=== PATIENT | male | born 1960 | race Caucasian/White ===

== ENCOUNTER 2024-04-11 15:12 | Inpatient (IN) | payer OTHER, SELFPAY ==
[2024-04-11] VITALS (39 sets, daily range): BP systolic 73–148; BP diastolic 53–131; BMI 32.9
[2024-04-11 11:47] LABS: % Basophils 0.7 % (0-2); % Eosinophils 2.7 % (0-6); % Immature Granulocytes 0.3 % (0-0.5); % Monocytes 7.4 % (1.7-9.3); % Neutrophils 58.9 % (42.2-75.2); Absolute Basophils 0.1 10^3/uL (0-0.2); Absolute Eosinophils 0.2 10^3/uL (0-0.7); Absolute Lymphocytes 2.2 10^3/uL (1.2-3.4); Absolute Monocytes 0.5 10^3/uL (0.1-0.6); Absolute Neutrophils 4.3 10^3/uL (1.4-6.5); Hematocrit 48.1 % (39.0-52.0); Mean Corp Hgb Conc. 33.3 g/dL (33.0-37.0); Mean Corpuscular Volume 96.2 fL (80.0-94.0); Mean Platelet Volume 10.9 fL (7.4-10.4); Nucleated Red Blood Cells % 0 % (-); Platelet Count 173 10^3/uL (130-400); Red Cell Dist. Width 12.9 % (11.5-14.5); White Blood Cell Count 7.3 10^3/uL (4.8-10.8)
[2024-04-11] MEDS: LOW STRENGTH ASPIRIN 243 MG PO (11:48)
[2024-04-11] MEDS: NITROSTAT (SUBLINGUAL) 0.4 MG SL ×4 (11:48→12:37)
[2024-04-11] MEDS: NSS 1000 IV (11:51)
--- NOTE | 2024-04-11 11:55 | ED.GENMED ---
History of Present Illness
General
Chief Complaint: Chest Pain
Source: patient and spouse
Exam Limitations: none
Time Seen by Provider: 04/11/24 11:42
Nursing documentation reviewed up to this point in time: agreed with
History of Present Illness
History of Present Illness:
Patient with history of coronary artery disease, SD in 2013 with stent placement, presents to ED secondary to sudden onset of chest pain while watching TV, on approxi-1 hour prior to arrival. Chest pain described as pressure and throbbing,
radiation to both arms, associated with nausea and diaphoresis. Denies shortness of breath. Denies dizziness. Denies vomiting. Denies back pain. Denies leg pain or swelling. No recent travel or surgery. Patient states that his symptoms are
similar to what he experienced 10 years ago. 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
Past History
Past History
ED Past Medical History: None
ED Past Surgical History: Orthopedic
Social History
Tobacco: Non-smoker
Alcohol: Occasional
Drug: None
Personal:
Living: with family
Review of Systems
Review of Systems
Allergies reviewed?: Yes
All Other Systems: ROS reviewed and negative except as documented in HPI and ROS
Constitutional: Reports no symptoms
Respiratory: Reports no symptoms
Cardiac: Reports chest pain and diaphoresis
ABD/GI: Reports nausea
: Reports no symptoms
Skin: Reports no symptoms
Neurological: Reports no symptoms
Phy Exam
Physical Exam
Physical Exam:
Physical Exam
General: mild distress, not acutely ill. afebrile
Head: nc/at. eomi
Neck: supple. normal range of motion. no jvd.
Heart: s1/s2 regular rate and rhythm, no murmur. equal radial pulses.
Lungs: no acute respiratory distress. clear bilaterally
Abdomen: normal bowel sounds. not tender.
Neuro: alert and oriented. no focal neurological deficits
Skin: no rash
Psychiatric: well kept. interactive and cooperative
Extremities: no edema. no calf tenderness.
Scores
Heart Score for Chest Pain Patients
STEMI patient?: No
History: Moderately Suspicious
ECG: Significant ST-Depression
Age: >45 - <65 years
Risk Factors: >/= 3 Risk Factors or History of CAD
Troponin: </= Normal Limit
Heart Score for Chest Pain Patients: 6
Heart Score Risk: 20.3% MACE over next 6 weeks
Course
Orders/Labs/Results
Orders:
Orders
04/11/24
Electrocardiogram (*1) Stat
Reason for Study: Chest Pain
Comment: DONE
Electrocardiogram (*1) Stat
Reason for Study: Chest Pain
Comment: DONE
04/11/24 11:22
Electrocardiogram (*1) Urgent
Reason for Study: Chest Pain
Cardiac Monitoring- Treatment ONCE
EKG- Treatment ONCE
IV Insert/Care/Rem.- Treatment PRN
O2 Therapy [RESP] Urgent
Titrate/Wean O2 to maintain O2 sat greater than (%): 90
Special Instructions: Maintain sats >/=90%
Pulse Ox/spot Check [RESP] Urgent
Quantity: 1
Special Instructions: ON ROOM AIR
04/11/24 11:38
Complete Blood Count/With Diff Urgent
Comprehensive Metabolic Panel Urgent
NT-proBNP Urgent
Comment: ADD
Troponin I Urgent
04/11/24 11:46
Aspirin Chewable [Low Strength Aspirin] 243 mg .ROUTE .STK-MED ONE
04/11/24 11:47
Aspirin Chewable [Low Strength Aspirin] 243 mg PO NOW STA
Nitroglycerin Sublingual [Nitrostat (Sublingual)] 0.4 mg .ROUTE .STK-MED ONE
04/11/24 11:50
0.9% Sodium Chloride 1000 ml [Nss] 1,000 ml IV BOLUS
04/11/24 11:51
Nitroglycerin Sublingual [Nitrostat (Sublingual)] 0.4 mg SL [id number] PRN
04/11/24 11:59
CR Chest Portable - 1 View Urgent
Comment:
Reason For Exam: chest pain
Reason Study Needs to be Portable: Patient Unstable
04/11/24 12:09
Heparin 4,000 units IV NOW STA
Nursing to Place Non Medication Order As Directed
Physician Order: PTT 6 hours after initial start of Heparin infusion
Above order entered?: Yes
04/11/24 12:15
Heparin 42067 Units/250 ml 25,000 units in 250 ml IV PER PROTOCOL
Weight to be used for heparin protocol in kilograms (kg):: 101
Protocol:: Cardiac Tx/Acute Coronary
PTT Goal Range to be used:: PTT 73 to 111 seconds
Order type:: Initial
INITIAL Infusion Dose (UNITS/KG/hr) & then follow protocol:: 12 units/kg/hr
Infusion Dose in UNITS/hr & then follow protocol (UNITS/hr):: 1,000
INFUSION RATE in mL/hr & then follow protocol (mL/hr):: 10
PTT less than or equal to 64 seconds:: Increase rate by 200 units/hr (+ 2 mL/hr)
PTT 64.1 to 72.9 seconds:: Increase rate by 100 units/hr (+ 1 mL/hr)
PTT 73 to 111 seconds:: Target Range. No change in rate.
PTT 111.1 to 130.9 seconds:: Decrease rate by 100 units/hr (- 1 mL/hr)
PTT 131 to 199.9 seconds:: HOLD for 1 hr. Then decrease rate by 200 units/hr (- 2 mL/hr)
PTT greater than or equal to 200 seconds:: HOLD for 2 hrs & Notify Provider. Then decrease by 200 units/hr (-
2 mL/hr)
Lab follow-up:: Each change, PTT q6h until 2 consecutive are therapeutic. Then PTT
daily.
Nitroglycerin 100 mg/250 ml [Nitroglycerin Premix] 100 mg in 250 ml IV PER PROTOCOL
Initial dose in mcg/min, then titrate:: 25
Titrate to keep:: Chest Pain Free
Titrate by mcg/min:: 5 mcg/min, may increase by 10 mcg/min if dose > 20 mcg/min
Frequency of titrations (minutes):: every 3-5 minutes
Maximum dose in mcg/min:: 200
Begin to taper infusion when:: Remained at goal for 2hrs
Taper by mcg/min:: 5 mcg/min
Frequency of taper (minutes) if patient maintains goal:: 30
Taper to off?: Yes
If infusion off & no longer maintaining goal:: Contact Provider
04/11/24 12:18
PTT Urgent
Comment: Obtain baseline before beginning heparin infusion if not already collected
04/11/24 12:24
Add On- LAB Urgent
Tests Added?: ProBNP
04/11/24 12:51
Nitroglycerin 100 mg/250 ml [Nitroglycerin Premix] 100 mg in 250 ml .ROUTE .STK-MED
04/11/24 12:55
Fentanyl Citrate/Pf [Sublimaze] 100 mcg .ROUTE .STK-MED ONE
Midazolam HCl [Versed] 2 mg .ROUTE .STK-MED ONE
Verapamil Injectable [Isoptin/Verapamil Injection] 5 mg .ROUTE .STK-MED ONE
04/11/24 12:56
Heparin 1000 Units/500 ml [Heparin] 1,000 units in 500 ml .ROUTE .STK-MED
Heparin Sodium,Porcine/Ns/Pf [Heparin 2000 Units/1000 ml] 2,000 unit in 1,000 ml .ROUTE .STK-MED
Nitroglycerin [Tridil] 1,500 mcg .ROUTE .STK-MED ONE
04/11/24 13:09
Lidocaine HCl/Pf [Xylocaine-Mpf 1% Vial] 50 mg .ROUTE .STK-MED ONE
04/11/24 13:32
EPTIFIBATIDE 75 mg/100 mL [Integrilin] 75,000 mcg in 100 ml .ROUTE .STK-MED
Eptifibatide [Integrilin] 20 ml .ROUTE .STK-MED
04/11/24 13:40
NORepinephrine 4 MG/250 ML [Levophed] 4 mg in 250 ml .ROUTE .STK-MED
04/11/24 13:46
Ticagrelor [Brilinta] 180 mg .ROUTE .STK-MED ONE
04/11/24 13:55
Admit Patient As Directed
Co-Sign Provider:
Level of Care: Inpatient admission
Assign to:: IVU
Physician / Group: DCA
Diagnosis: NSTEMI, HFrEF
Patient Condition: Serious
Reason for Hospitalization: NSTEMI, HFrEF
Expected length of stay greater than two midnights?: Yes
ELOS- Estimated Length of Stay in days: 4
I certify the patient meets the requirements for IP care: Yes
Code Status As Directed
Resuscitation Status: Full Code
PRN Pain Medication Management As Directed
May give lesser potent ordered pain med per pt: Yes
preference::
Protocol:: Medication orders for pain may be administered in a
manner that supports deferring to patient preference
when the pt is:
- Requesting an ordered lesser potent pain medication.
Least to most potent pain medications are defined
as: acetaminophen < NSAID < tramadol < opioids
(morphine, oxycodone, hydromorphone).
- Requesting a lesser dose of the same medication IF
ORDERED.
- Requesting a less intrusive route of administration
if both routes are prescribed by the provider (PO <
IV).
04/11/24 13:56
Activity As Directed
Activity Level: As Tolerated
04/11/24 13:57
Echo 2D MMode Color/Doppler Urgent
Reason for Study: NSTEMI, HFrEF
Intake/ Output As Directed
Frequency: Per unit guidelines
Weight As Directed
Frequency: Daily
04/11/24 14:00
Electrocardiogram (*1) DAILY
Reason for Study: Chest Pain
04/11/24 14:05
Nitroglycerin [Tridil] 1,500 mcg .ROUTE .STK-MED ONE
04/11/24 Dinner
Cholesterol Lowering
At Your Request: Full Participation
Cholesterol Lowering: Sodium, 2 Gram
04/11/24 15:11
Electrocardiogram (*1) Urgent
Reason for Study: Other
Other Reason for Exam: s/p intervention
CARDIAC REHAB CONSULT Routine
Co-Sign Provider:
Type of Cardiac Rehab Referral: Outpatient
Diagnosis: STEMI
Date of Diagnosis/Surgery: 04/11/2024
Referring Provider: Daniel Raymundo
Acetaminophen [Tylenol] 650 mg PO Q4HPRN PRN
Fentanyl Citrate/Pf [Sublimaze] 25 mcg IV [id number] PRN
Midazolam HCl [Versed] 1 mg IV Q5MPRN PRN
Morphine Sulfate 2 mg IV Q1HPRN PRN
Nitroglycerin Sublingual [Nitrostat (Sublingual)] 0.4 mg SL [id number] PRN
Oxycodone/Acetaminophen [Percocet 5/325] 1 tablet PO Q4HPRN PRN
Activity As Directed
Activity Level: Out of Bed- Chair
Comment: bed/chair rest for 2 hours then out of bed ad dorothy
[employer] Procedure As Directed
Cardiac Cath Procedure: percutaneous coronary intervention
Intake/ Output As Directed
Frequency: Per unit guidelines
Notify MD As Directed
Notify physician if: immediately for chest pain or bleeding from access site(s)
Radial Artery Hemostasis Method As Directed
Instructions:: 3 mL out at 2 hour posts placement of band
3 mL out at 2 1/2 hours post placement of band
3 mL out at 3 hours post placement of band
Off at 3 1/2 hours post placement of band
If any oozing or hemotoma occurs:: re-inflate band and call provider
Site Checks As Directed
Check access site for bleeding/hematoma: Yes
Comment: on arrival, Q15min x4, Q30min x2, Q1 hr x2, Q2 hr x2, Q4 hr or per
protocol
Vascular Checks As Directed
Location: distal to access site - pulse check
Frequency: Other
Comment: on arrival, Q15min x4, Q30min x2, Q1 hr x2, Q2 hr x2, Q4 hr or per protocol
Vital Signs As Directed
Frequency: Other
Additional Instructions:: on arrival, Q15min x4, Q30min x2, Q1 hr x2, Q2 hr x2, then Q4 hr or per unit
protocol
04/11/24 15:15
0.9% Sodium Chloride 1000 ml [Nss] 1,000 ml IV PER PROTOCOL
Infusion rate in mL/kg/hr:: 1.5
Infusion rate in mL/hr:: 152
Duration of infusion (hours):: 5
EPTIFIBATIDE 75 mg/100 mL [Integrilin] 75,000 mcg in 100 ml IV ORDERED RATE
04/11/24 16:29
Troponin I Q6H
04/11/24 18:00
Rosuvastatin Calcium [Crestor] 20 mg PO QPM
04/11/24 20:00
Ticagrelor [Brilinta] 90 mg PO BID
04/11/24 21:02
Troponin I Q6H
04/12/24 03:18
Basic Metabolic Panel IN AM
Complete Blood Count/No Diff IN AM
Magnesium IN AM
Troponin I IN AM
Troponin I Q6H
04/12/24 06:00
Electrocardiogram (*1) IN AM
Reason for Study: Other
Other Reason for Exam: s/p intervention
04/12/24 08:00
Aspirin Chewable [Low Strength Aspirin] 81 mg PO DAILY
Metoprolol Xl [Toprol Xl] 12.5 mg PO DAILY
04/12/24 14:00
Electrocardiogram (*1) DAILY
Reason for Study: Chest Pain
04/13/24 14:00
Electrocardiogram (*1) DAILY
Reason for Study: Chest Pain
Abnormal Lab Results
04/11/24 04/11/24 04/11/24
11:38 13:31 13:55
MCV 96.2 H fL
(80.0-94.0)
MCH 32.0 H pg
(27.0-31.0)
MPV 10.9 H fL
(7.4-10.4)
Glucose 140 H mg/dl
(70-99)
Albumin 5.3 H g/dl
(3.5-5.0)
POC ACT Low Range 361 H Seconds 388 H Seconds
(116-155) (116-155)
04/11/24
14:43
MCV
MCH
MPV
Glucose
Albumin
POC ACT Low Range 239 H Seconds
(116-155)
04/11/24 11:38
04/11/24 11:38
Vital Signs
Initial and Last Documented VS:
Initial Vital Signs
Temp Pulse Resp BP Pulse Ox
98.3 F 58 16 132/78 100
04/11/24 11:29 04/11/24 11:29 04/11/24 11:29 04/11/24 11:29 04/11/24 11:29
Last Documented Vital Signs
Temp Pulse Resp BP Pulse Ox
98.4 F 64 20 126/71 97
04/12/24 06:53 04/12/24 08:18 04/12/24 06:53 04/12/24 08:18 04/12/24 08:34
MDM/Problems Addressed
MDM/Problems Addressed:
History/exam concerning for ACS. Pt given aspirin 81 mg x 3 (one taken at home) along with NTG SL with mild improvement in symptoms.
Discussed with Dr.Renee White (cardiology) - will come and evaluate patient in ED. Heparin protocol will be started.
Patient with continual intermittent chest pain, worsening at times. Patient however remains hemodynamically stable. Patient given additional sublingual nitroglycerin, with improvement in symptoms.
Critical care statement: A total of 60 minutes of critical care time was provided for this patient. This includes management of unstable vital signs, evaluation of the patient at bedside, reviewing the patient's pertinent medical records, discussion
with consultants, review of old EKGs and review of pertinent medical records. This time with separate from time utilized to perform the aforementioned documented procedures
*EKG
Interpreted by ED Provider?: Yes
EKG Intrepretation Date: 04/11/24
Heart Rate: 51
Rate: bradycardiac
Rhythm: sinus
[place]: normal axis
Ischemia: ST depression
*Critical Care Note
Total Time (30-74mins, 75-104mins- exclusive of procedures): 60 min
ED Attending Note
-
Portions of this chart may have been created with voice recognition software.� Occasional wrong word or��sound alike� substitutions may have occurred due to the inherent limitations of voice recognition software.
Discharge Plan
Departure
Patient Disposition: Admit
Date of Disposition: 04/11/24
Time of Disposition: 12:12
Admit to: IVU
Presentation/result/management discussed w/ accepting MD/DO:
Discharge Problem:
ACS (acute coronary syndrome)
Interventions
Interventions:
*Risk Screen - Suicide Last Done: 04/11/24 11:29
*General Assessment Last Done: 04/11/24 11:57
*Neglect/Abuse Screening Last Done: 04/11/24 11:29
ED- Fall Risk Assessment Last Done: 04/11/24 11:57
*ED COVID-19 Vaccine History Last Done: 04/11/24 11:57
*Nursing Disposition Last Done: 04/11/24 13:29
ED- Cardiac Assessment Last Done: 04/11/24 11:57
Discharge Date and Time
Discharge Date/Time: 04/11/24 13:25
[2024-04-11 12:02] LABS: ALT (SGPT) 18 U/L (0-50); AST (SGOT) 26 U/L (17-59); Albumin 5.3 g/dl (3.5-5.0); Alkaline Phosphatase 97 U/L (38-126); Blood Urea Nitrogen 12 mg/dl (9-20); Calcium 9.3 mg/dl (8.4-10.2); Carbon Dioxide 26 mmol/L (22-30); Chloride 103 mmol/L (98-107); Estimated Creatinine Clearance 91 ml/min; Glucose 140 mg/dl (70-99); Potassium 3.8 mmol/L (3.5-5.1); Sodium 140 mmol/L (135-145); Total Bilirubin 0.9 mg/dl (0.2-1.3); Total Protein 8.2 g/dl (6.3-8.2); eGFR > 60.00
[2024-04-11 12:13] LABS: Troponin I 0.019 ng/ml
[2024-04-11] MEDS: HEPARIN 4000 UNITS IV (12:15)
[2024-04-11] MEDS: HEPARIN 25000 UNITS/250 ML IV (12:22)
--- NOTE | 2024-04-11 12:35 | CON.CAR ---
Consultation
Consultation Request
Date/Time Consultation Requested: April 11, 2024
Date/Time Consultation Performed: April 11, 2024
Requesting Provider: Emergency department
Performing Provider: Dr. Johnny White
Reason for Consultation: Chest pain
Medical History
-
Chief Complaint: Chest pain
History of Present Illness:
Patient describes that approximately 1 and 1/2 hours before presenting to the emergency department today he began experiencing a left chest pressure/pain. He describes it as an intensifying/progressive pain prompting him to come to the emergency
department. He tells me that he could not find any position which would improve the pain. Along with this discomfort there is some nausea. There is some radiation across to the right side of the chest and also a separate low back discomfort which
started soon after the chest pain began.
Cardiology has been consulted
In the emergency department he was given a series of sublingual nitroglycerin up to 3. That reduced his pain initially from a peak of 8 out of 10 to 2 out of 10 but soon after the third sublingual nitroglycerin his pain began to intensify again.
Additionally he was given aspirin and a heparin bolus, started on a heparin infusion. There was plan to initiate nitroglycerin drip but his systolic blood pressure was borderline, at times as low as 85 systolic.
Cardiology has been consulted
- His initial electrocardiogram demonstrates sinus bradycardia with ST depressions in the inferior leads. There is ST elevations in the anterior leads which appear to be persistent when compared to prior EKG and may represent persistent ST
elevations consistent with LV aneurysm (prior Ant MS 2013).
- Initial troponin value was 0.019
- Chest x-ray to my interpretation is consistent with interstitial pulmonary edema
-Hemoglobin and hematocrit are 16 and 48 platelet count is 173,000, BUN and creatinine are 12 and 1, potassium 3.8 and sodium 140
Past medical history
- Coronary artery disease with prior anterior wall myocardial infarction in 2013
05/31/13 CORONARY FINDINGS
Dominance: Right
Left Main: Normal
LAD: There is a thrombotic 100% total occlusion of the proximal LAD.
Circumflex: The first OM comes off of the proximal LAD and has a proximal 50% stenosis.
RCA: Luminal irregularities
Thrombectomy and 4.0/28 mm Xience V drug eluting stent to the proximal LAD.
- Cardiomyopathy/HFrEF
06/01/2013 echocardiogram findings LVEF 35% with hypokinetic apex, septum, distal anterior and distal inferior wall
- Dyslipidemia
- Medical noncompliance
Social History
Tobacco: Non-Smoker
Alcohol: Occasional
Drug: None
Personal:
Living: With Family
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
Family History
Family History: Reviewed & Not Pertinent
Allergies / Home Medications
Allergy/AdvReac Type Severity Reaction Status Date / Time
No Known Allergies Allergy Verified 04/11/24 11:29
�Medication �Instructions �Recorded �Confirmed �Type
ibuprofen 200 mg capsule (Advil 200 mg PO PRN 05/31/13 05/31/13 History
Liqui-Gel)
aspirin 81 mg tablet,delayed 81 mg PO DAILY ##0 06/02/13 Rx
release
carvedilol 6.25 mg tablet 6.25 mg PO BID ##180 06/02/13 Rx
lisinopril 2.5 mg tablet 2.5 mg PO DAILY ##90 06/02/13 Rx
nitroglycerin 0.4 mg sublingual 0.4 mg sublingual [id number] PRN 06/02/13 Rx
tablet chest pain #60 tabs
rosuvastatin 40 mg tablet (Crestor) 40 mg PO DAILY #90 tabs 06/02/13 Rx
ticagrelor 90 mg tablet (Brilinta) 90 mg PO BID ##60 06/02/13 Rx
Review of Systems
-
History Source: Patient
All other systems: Negative unless noted
Constitutional: No Symptoms
EENT: No Symptoms
Respiratory: No Symptoms
Cardiac: Chest Pain
Abdomen/GI: Nausea
: No Symptoms
Musculoskeletal: Other (Low back pain)
Skin: No Symptoms
Neurological: No Symptoms
Endocrine: No Symptoms
Hematologic/Lymphatic: No Symptoms
Physical Exam
Vital Signs
Temp Pulse Resp BP Pulse Ox
98.3 F 64 18 105/66 97
04/11/24 11:29 04/11/24 12:00 04/11/24 12:00 04/11/24 12:05 04/11/24 12:00
Lab Results
04/11/24 11:38
04/11/24 11:38
Troponin I 0.019 ng/ml 04/11/24 11:38
Physical Exam
General: Other (He appears uncomfortable related to his chest discomfort)
HEENT: Normocephalic, Anicteric and Moist Mucous Membranes
Respiratory: Clear
Cardiac: S1/S2, Regular Rhythm and Murmur (Grade 1/6 apical holosystolic murmur, no rubs)
Breast: Deferred by me
GI: Soft, Non Tender, Non Distended and Normal Bowel Sounds
Rectal: Deferred by Provider
Musculoskeletal: No Clubbing, No Cyanosis and No Edema
Skin: Warm and Dry
Neuro: Awake, Alert, Oriented and AO x 3
Impression / Plan
-
Impression/Plan:
He is critically ill
- Acute coronary syndrome
Known coronary artery disease and EKG now with new inferior ST abnormalities
Ongoing symptoms despite antianginal therapy which has included sublingual nitroglycerin, aspirin, IV heparin
Hypotension is preventing IV nitroglycerin
Given inability to adequately control his symptoms, will have patient emergently evaluated with coronary angiography
Further evaluation and management pending coronary angiography results.
(I have discussed this case with the patient, his at the bedside, emergency room physician and the business technology professor on-call)
- HFrEF
Echocardiogram June 01, 2013 with LVEF 35% and hypokinetic wall motion in the LAD distribution
Due to medical noncompliance he has not followed up since his myocardial infarction in 2013
Chest x-ray today in the emergency department has findings consistent with interstitial pulmonary edema
Plan for right heart cath at time of his left heart cath
IV Lasix diuresis as blood pressure allows
Guideline directed medical therapy for heart failure with reduced ejection fraction as blood pressure allows
(Medication list has included carvedilol 6.25 mg twice daily and lisinopril 2.5 mg daily which we can attempt to reinitiate if hemodynamic allow)
Reassessment of LV function by echocardiogram this admission
CHF education
- Dyslipidemia
Continue high-dose statin, rosuvastatin 40 mg daily
- Medical noncompliance
This will have to be further addressed this hospital admission.
Total critical care time spent today was 75 minutes in preparing to see the patient, seeing the patient and coordination of care. This included review of recent laboratory evaluations, cardiac testing, imaging studies, health records, as well as
personally interviewing and examining the patient, which included discussion of their tests, review/ordering medications, and communicating with other healthcare professionals and also treatment planning as well as counseling.
Data Reviewed
-
EKG: Tracing Personally Visualized and interpreted
Radiology: Image Personally Visualized and interpreted
Medical Tests (Nuc Med, Echo etc): Report Reviewed by me
Labs: Labs Reviewed by me, Discussed with Physician, Discussed with Nurse, Discussed with Patient and Discussed with Family
Old Records: Reviewed
[2024-04-11 12:39] LABS: APTT 25.6 Sec (23.4-35.0)
[2024-04-11 13:18] LABS: NT-proBNP 180 pg/ml
[2024-04-11 13:42] LABS: ACT-LR - POC 361 Seconds (116-155)
[2024-04-11 14:02] LABS: ACT-LR - POC 388 Seconds (116-155)
[2024-04-11 14:48] LABS: ACT-LR - POC 239 Seconds (116-155)
--- NOTE | 2024-04-11 15:15 | ITS.CL.ANGIO ---
Wafer Cutter - Angioplasty
Angioplasty
Procedure Report:
CARDIAC CATHETERIZATION REPORT
Date of Procedure: 04/11/2024
Referring: Johnny White M.D.
Indication: Acute coronary syndrome, unstable symptoms, STEMI equivalent.
PROCEDURE:
1. Right heart catheterization.
2. Coronary angiography.
3. Left heart catheterization.
4. Left ventriculography.
5. Aspiration thrombectomy of the proximal LAD.
6. Successful IVUS guided PCI of the proximal LAD.
7. Successful IVUS guided PCI of the mid/distal LAD.
A total of 88 minutes of procedural/moderate sedation was utilized. An independent medical staff specialist was present to assist with and help manage the patient's level of consciousness and physiologic status.
ACCESS:
1. 6 [place] right radial artery using a modified Seldinger technique.
2. 5 [place] right antecubital vein through a previously placed IV.
CATHETERS:
1. 5 [place] balloon wedge.
2. 5 [place] JR4.
3. 5 [place] JL 3.5.
4. 6 [place] EBU 4.0 guiding catheter.
HEMODYNAMIC DATA
Weight (kg): 100.7
AO (s/d/x, mmHg): 102/72/84
LV (s/x, mmHg): 102/35
PCWP (a/v/x, mmHg): 47/47/35
PA (s/d/x, mmHg): 47/36/40
RV (s/x, mmHg): 47/15
RA (a/v/x, mmHg): //15
SVC SvO2 (%): 67.2
IVC SvO2 (%): Not obtained.
RA SvO2 (%): Not obtained.
RV SvO2 (%): Not obtained.
PA SvO2 (%): 71.5
SaO2 (%): 95.9
Hbg (g/dL): 13.8
LALITHA
CO (L/min): 5.95
CI (L/min/m2): 2.76
Thermodilution
CO (L/min): Not performed.
CI (L/min/m2): Not performed.
TPG (mmHg): 5
PVR (Olmedo Units): 0.84
SVR (dynes*seconds*cm^-5): 928
AVO2 Diff (Volume %): 4.58
AV gradient (x, mmHg): None.
AV area (cm2): Normal
MV gradient (x, mmHg): Not obtained.
MV area (cm2): Not obtained.
LEFT VENTRICULOGRAPHY: Performed in an VALENZUELA projection. The ventricle is mild to moderately dilated with akinesis of the entire anterior wall, apex and distal/apical inferior wall with moderate to severely reduced systolic function. Left
ventricular ejection fraction estimated at 30-35%. There is no mitral valve regurgitation. There is no aortic valve insufficiency. The aortic root and visualized ascending and descending aorta appear normal.
AORTOGRAPHY: Not performed.
CORONARY ANGIOGRAPHY
Dominance: Right.
Left Main: Normal size, trifurcating vessel. There is no coronary artery disease.
LAD: Large size vessel giving rise to 2 notable diagonals. There is an acute occlusion at the proximal margin of a previously placed proximal LAD stent. There is a 70% lesion of the mid LAD immediately after the stented segment. There is a 70%
lesion in the mid/distal LAD, immediately proximal to the origin of a small third diagonal. There is a 90% lesion in the distal LAD spanning the origin of the third diagonal.
Ramus: Large size vessel supplying a large amount of the lateral wall. There is a 90% lesion in the proximal margin.
Circumflex: Small size vessel that is essentially a single small marginal. There is no coronary artery disease.
RCA: Large size, dominant vessel with moderate, diffuse disease including an eccentric 50-60% lesion in the proximal RCA, a 30% lesion in the distal RCA and luminal irregularities throughout the entire distal RCA, RPDA and right posterolateral
branch.
INTERVENTIONS
1. Successful aspiration thrombectomy of the proximal/mid LAD (ANETA catheter) with methodist of MERCEDES-3 flow.
2. Successful IVUS guided PCI of the proximal/mid LAD, including the 70% lesion immediately distal to the previously stented segment (Medtronic [place] 3.0 x 38 EDGAR, postdilated with a 3.0 NC balloon to 14 dayo in the distal margin, 16 dayo in
the mid stent and 18 dayo in the proximal margin) with reduction in all proximal/mid LAD lesions to 0%, maintaining MERCEDES-3 flow.
3. Successful IVUS guided PCI of the 90% distal LAD lesion spanning the origin of D3 (Medtronic [place] 2.5 x 26 EDGAR, postdilated with a 2.5 NC balloon to 16 dayo) with reduction in stenosis to 0%, maintaining MERCEDES-3 flow.
4. Successful IVUS guided PCI of the 70% mid/distal LAD lesion (Medtronic [place] 2.5 x 18 EDGAR, postdilated with 2.5 NC balloon throughout and a 2.75 NC balloon in the proximal margin) with reduction in stenosis to 0%, maintaining MERCEDES-3 flow.
5. Intracoronary nitroglycerin administration.
Narrative:
The decision was made to proceed with percutaneous coronary intervention. The diagnostic catheter was removed over a wire and a 6Fr EBU 4.0 guiding catheter was advanced to the aortic root and seated in the left main coronary artery with some
difficulty. Additional heparin was given and a Power Turn Flex wire was advanced into the distal LAD with relative ease.
Given the thrombus burden and the acute stent thrombosis lesion, the decision was made to perform thrombectomy and aggressive anticoagulation/antiplatelet therapy. Eptifibatide was initiated as a double bolus and drip. An ANETA catheter was prepped
and flushed on the back table then connected to a syringe which was pulled to negative. The catheter was advanced into the proximal LAD. The stopcock was opened to the vacuum syringe and the catheter was passed through the thrombotic segment. The
catheter was withdrawn from the guiding catheter, maintaining negative pressure. The contents were emptied into the filter basket. The basket contents revealed large thrombus burden. Repeat angiography showed methodist of MERCEDES-3 flow.
The 70% proximal/mid LAD lesion immediately distal to the stent was predilated with a 2.0 x 12 semi-compliant balloon to 12 dayo. The entire stented segment was predilated to 12 dayo. The semi-compliant balloon was removed and a Medtronic [place] 3.0 x 38 drug-eluting stent was advanced. Meticulous care was taken while positioning the stent, ensuring that the distal margin of the stent was covering the proximal/mid LAD lesion in the proximal margin was covering the entire stented
segment into the proximal vessel. When we were satisfied with our position, the stent was deployed at 12 atmospheres. The stent balloon was removed. A 3.0 x 20 noncompliant balloon was advanced into the stent and the stent was postdilated to 14
atmospheres in its distal margin, 16 dayo in its midsection and 18 dayo in its proximal margin.
The decision was made to perform intracoronary imaging. An IVUS catheter was advanced through the guiding catheter and into the ostium of the artery. Ring down was performed once the imaging crystal was no longer inside of the guiding catheter. The
IVUS catheter was advanced into the mid LAD, beyond the stented segment. Intravascular ultrasound was performed in a retrograde fashion using a slow pullback. Intracoronary imaging demonstrated good stent apposition and expansion throughout the
entire stented segment.
The patient reported a significant improvement in his chest and back pain. He did report that he still had some residual back pain, concerning for anginal equivalent versus a secondary process. In light of restored LAD flow revealing a mid and
distal LAD lesion, the decision was made to intervene on these lesions.
Both the 70% mid LAD and 90% distal LAD lesions were predilated with a 2.0 x 12 semi-compliant balloon to 12 dayo. The semi-compliant balloon was removed and a Medtronic [place] 2.5 x 26 drug-eluting stent was advanced into the distal LAD
lesion. The stent was deployed at 12 atmospheres. The stent balloon was removed. A 2.5 x 20 noncompliant balloon was advanced into the stent and the stent was postdilated to 12 atmospheres in the distal margin and 14 dayo in its proximal margin. A
small amount of vessel recoil was seen immediately distal to the stent margin. Nitroglycerin was given intracoronary with some relaxation, suggesting that this was vessel spasm rather than dissection or de harjinder atherosclerosis. Interestingly,
after PCI of the 90% distal LAD lesion, the patient reported resolution of his back pain.
We then turned our attention to the 70% lesion in the mid vessel. A Medtronic [place] 2.5 x 18 drug-eluting stent was advanced. The stent was deployed at 12 dayo. The stent balloon was removed and a 2.5 x 12 noncompliant balloon was
advanced. The stent was postdilated to 12 dayo in its distal margin and 14 dayo in its proximal margin. The 2.5 x 12 noncompliant balloon was removed and a 2.75 x 12 noncompliant balloon was advanced. The mid LAD stent was dilated to 15 dayo in its
proximal margin.
The noncompliant balloon was removed and IVUS was repeated through the entire LAD. This demonstrated no evidence of dissection in either the distal or proximal margin of the stented segments. It did show good stent apposition throughout the entire
stented segment, but underexpansion of the distal LAD stent in its midsection. The IVUS catheter was withdrawn and the 2.5 x 12 NC balloon was advanced into the distal LAD stent. The underexpanded section was postdilated to 15 dayo in its distal
margin and 18 dayo in its proximal margin. The noncompliant balloon was withdrawn.
Angiography was performed in orthogonal views, confirming good stent expansion and an excellent angiographic result. The coronary wire was withdrawn and the guide was disengaged from the artery. The catheter was removed over a standard J-wire.
We then proceeded with left ventriculography and right heart catheterization.
Closure Device: Vascular band for the right radial artery, manual pressure for the left antecubital vein.
Radiation dose (mGy): 1114.85
DAP (cm2.Gy): 70.8179
Fluoroscopy time (minutes): 18.9
CONCLUSIONS:
1. Right dominant circulation with an eccentric 50 to 60% lesion in the proximal RCA, a 30% lesion in the distal RCA with luminal irregularities throughout the remainder of the RCA, and 90% lesion in the proximal margin of a large ramus
intermedius, and acute occlusion of a previously placed proximal LAD stent followed by a 70% lesion in the mid LAD immediately after the stented segment status post successful aspiration thrombectomy and IVUS guided PCI (Medtronic [place] 3.0
x 38 EDGAR, postdilated with a 3.0 NC balloon) with reduction in stenosis to 0%, restoring MERCEDES-3 flow, a 70% mid/distal LAD lesion status post successful IVUS guided PCI (Medtronic [place] 2.5 x 18 EDGAR, postdilated with a 2.5 NC balloon
throughout and a 2.75 NC balloon in the proximal margin) and a 90% distal LAD lesion spanning the origin of D3 status post successful IVUS guided PCI (Medtronic [place] 2.5 x 26 EDGAR, postdilated with a 2.5 NC balloon throughout) with reduction
in both stenoses to 0%, maintaining MERCEDES-3 flow.
2. Moderately dilated left ventricle with akinesis of the entire anterior wall and moderate to severely depressed systolic function, LV ejection fraction estimated at 30-35%.
3. Severely elevated filling pressures (LVEDP = 35 mmHg, PCWP = 35 mmHg at 100.7 kg).
4. Moderate postcapillary pulmonary hypertension (mean PA = 40 mmHg, PCWP = 35 mmHg, CO = 5.95 L/min, PVR = 0.84 Olmedo units), WHO group 2.
RECOMMENDATIONS:
1. Expectant management after cardiac catheterization via right radial approach.
2. Limited weight bearing on the right wrist for one week.
3. Dual antiplatelet therapy with aspirin and ticagrelor for at least 12 months, followed by aspirin indefinitely.
4. Aggressive secondary prevention with high-dose, high potency statin, goal LDL <55.
5. Introduction of OMT/GDMT as hemodynamics permit.
6. Echocardiogram ordered and pending.
7. Plan for staged PCI of ramus, IFR of eccentric proximal RCA lesion prior to discharge.
8. Referral to cardiac rehab.
Copy to: Johnny White M.D.
Daniel Raymundo DO, FACC, FACP
--- NOTE | 2024-04-11 15:53 | PTCARENOTE ---
Addendum entered by Lisa Killian RN 04/11/24 16:05:
lasix IV given as ordered.
Original Note:
patient arrived from cath lab radiology technician, CP free. EKG completed as ordered NSR. monitor on ST, VSS. IV Integrilin @ 16ml/hr via right ant. IV NSS @ 152cc/hr. left brachial has pressure dsg. on, distal pulse palpable. right radial has R band on, distal pulse
palpable. Echo being done at bedside. family in waiting room.
[2024-04-11] MEDS: LASIX 20 MG IV (16:21)
[2024-04-11] MEDS: INTEGRILIN 100 IV ×2 (17:59→23:37)
[2024-04-11] MEDS: BRILINTA 90 MG PO (19:24)
--- NOTE | 2024-04-11 23:15 | PTCARENOTE ---
Patient received at change of shift resting in the bed. Integrilin gtt infusing per order at 16ml/hr. Right radial TR band in place. Right radial pulse palpable. Pulse ox right hand 98-100%, patient on room air. Left brachial site intact, old
drainage noted, unchanged from previous shift's assessment/report. Left radial pulse palpable. Both sites are soft to palpation. Patient denies chest pain.
TR band was removed without complication. See cath flow sheet.
Around 2016 patient had an eleven beat run of ventricular tachycardia. Patient denied feeling palpitations at the time. Was resting in the bed during this episode. BP 108/61 (76). DCA nursing support worker pollution control technician notified. No changes in the current plan of
care were ordered.
Around 2054 the patient had one episode of N/V. Patient appeared diaphoretic at the time. An EKG was done. Troponin ordered for 2114 was drawn. After initial episode of N/V patient reported feeling better. Patient denied chest pain during this
episode.
Plan of care discussed with patient and family. Call drake within reach. Assessment and care ongoing.
--- NOTE | 2024-04-11 23:32 | PTCARENOTE ---
Patient and spouse were concerned that his breathing was labored at times. Continuous pulse oximetry has been maintained. Patient oxygen saturation on room air 97-100%. Patient lungs are clear to auscultation bilaterally. Patient does not appear
tachypneic, dyspneic on exertion or at rest, mucous membranes are pink, capillary refill <3 seconds, patient respirations do not appear labored. Patient denies pain upon inspiration and expiration. Respiratory pattern appears normal. Continuous
pulse oximetry maintained to monitor oxygen status.
[2024-04-12] VITALS (8 sets, daily range): BP systolic 94–133; BP diastolic 58–84; BMI 32.0
[2024-04-12 04:10] LABS: Hematocrit 41.2 % (39.0-52.0); Hemoglobin 14.1 g/dL (13.0-18.0); Mean Corp Hgb Conc. 34.2 g/dL (33.0-37.0); Mean Corpuscular Hgb 32.1 pg (27.0-31.0); Mean Corpuscular Volume 93.8 fL (80.0-94.0); Mean Platelet Volume 11.7 fL (7.4-10.4); Platelet Count 132 10^3/uL (130-400); Red Blood Cell Count 4.39 10^6/uL (4.70-6.10); Red Cell Dist. Width 12.9 % (11.5-14.5); White Blood Cell Count 11.9 10^3/uL (4.8-10.8)
[2024-04-12 04:29] LABS: Blood Urea Nitrogen 13 mg/dl (9-20); Calcium 8.7 mg/dl (8.4-10.2); Carbon Dioxide 22 mmol/L (22-30); Chloride 102 mmol/L (98-107); Estimated Creatinine Clearance 112 ml/min; Glucose 115 mg/dl (70-99); Potassium 4.1 mmol/L (3.5-5.1); Sodium 135 mmol/L (135-145); eGFR > 60.00
[2024-04-12] MEDS: INTEGRILIN 100 IV (05:19)
--- NOTE | 2024-04-12 07:35 | W.PN.CARDCBS ---
Today's Communication / Plan
-
Plan for staged PCI tomorrow
IV Lasix again today
Impression / Plan
-
Impression/Plan:
He is critically ill
- Acute NSTEMI
Known coronary artery disease, ischemic EKG and ongoing symptoms despite antianginal therapy with hypotension is preventing IV nitroglycerin
Urgent cath : Aspiration thrombectomy of the proximal LAD, PCI of the proximal LAD and PCI of the mid/distal LAD
Right dominant circulation with an eccentric 50 to 60% lesion in the proximal RCA, a 30% lesion in the distal RCA with luminal irregularities throughout the remainder of the RCA, and 90% lesion in the proximal margin of a large ramus
intermedius, and acute occlusion of a previously placed proximal LAD stent followed by a 70% lesion in the mid LAD immediately after the stented segment status post successful aspiration thrombectomy and IVUS guided PCI (Medtronic [place] 3.0 x 38 EDGAR, postdilated with a 3.0 NC balloon) with reduction in stenosis to 0%, restoring MERCEDES-3 flow, a 70% mid/distal LAD lesion status post successful IVUS guided PCI (Medtronic [place] 2.5 x 18 EDGAR, postdilated with a 2.5
NC balloon throughout and a 2.75 NC balloon in the proximal margin) and a 90% distal LAD lesion spanning the origin of D3 status post successful IVUS guided PCI (Medtronic [place] 2.5 x 26 EDGAR, postdilated with a 2.5 NC balloon
throughout) with reduction in both stenoses to 0%, maintaining MERCEDES-3 flow.
Moderately dilated left ventricle with akinesis of the entire anterior wall and moderate to severely depressed systolic function, LV ejection fraction estimated at 30-35%.
Severely elevated filling pressures (LVEDP = 35 mmHg, PCWP = 35 mmHg at 100.7 kg).
Moderate postcapillary pulmonary hypertension (mean PA = 40 mmHg, PCWP = 35 mmHg, CO = 5.95 L/min, PVR = 0.84 Olmedo units), WHO group 2.
Troponin values: 0.019 -> 7.88 -> 33.5 -> 42.6 -> 44.2
Dual antiplatelet therapy with aspirin and ticagrelor for at least 12 months, followed by aspirin indefinitely.
Plan for staged PCI of ramus, IFR of eccentric proximal RCA lesion prior to discharge.
- HFrEF
Echocardiogram June 01, 2013 with LVEF 35% and hypokinetic wall motion in the LAD distribution
Due to medical noncompliance he has not followed up since his myocardial infarction in 2013
Chest x-ray today in the emergency department has findings consistent with interstitial pulmonary edema
Rght heart cath at time of his left heart cath results are noted above and consistent with volume overload with preserved cardiac output and index
IV Lasix diuresis as blood pressure allows
Due to concern over hypotension, just 20 mg IV Lasix given post cath yesterday
Blood pressure has improved
With 20 mg IV Lasix yesterday he is -2 L and weight is down 6 pounds
Will give 20 mg IV Lasix again today and adjust dosage on a daily basis
Guideline directed medical therapy for heart failure with reduced ejection fraction as blood pressure allows
(Medication list has included carvedilol 6.25 mg twice daily and lisinopril 2.5 mg daily)
Toprol-XL 12.5 mg once daily was started post cath on 04/11/24, maintain current dose of Toprol as we follow blood pressure
Consideration for Entresto as blood pressure allows
Consideration for SGLT2 inhibitor
CHF education
- NSVT
He has had up to 4 beats of nonsustained VT on telemetry monitoring, asymptomatic and this is in the acute setting of myocardial infarction and intervention (less than 24 hours)
Continue to follow telemetry and assess ventricular arrhythmias
Continue beta-max
We will continue to assess sudden cardiac risk
Certainly if LVEF remains less than 35% 40 days after intervention ICD would be warranted
If he continues to have nonsustained VT greater than 48 hours after any intervention there could be consideration for EPS guided restratification
- Dyslipidemia
Continue high-dose statin, rosuvastatin 40 mg daily
- Medical noncompliance
This will have to be further addressed this hospital admission.
Discussed with patient, we reviewed yesterday's findings and results as well as our recommendations including staged intervention of his coronary artery disease and medical management of his heart failure. All of his questions have been answered
Total time 50 min
Progress Note - Medical Administrative Specialist
Subjective
Date of Service: April 12, 2024
He tells me he has remained pain-free since his intervention yesterday.
Denies shortness of breath chest pain palpitations dizziness
Objective
Labs:
04/12/24 03:18
04/12/24 03:18
Labs
Hgb 14.1 g/dL (13.0-18.0) 04/12/24 03:18
Hct 41.2 % (39.0-52.0) 04/12/24 03:18
Plt Count 132 10^3/uL (130-400) D 04/12/24 03:18
APTT Cancelled 04/11/24 18:22
Sodium 135 mmol/L (135-145) 04/12/24 03:18
Potassium 4.1 mmol/L (3.5-5.1) 04/12/24 03:18
BUN 13 mg/dl (9-20) 04/12/24 03:18
Creatinine 0.8 mg/dL (0.7-1.3) 04/12/24 03:18
Glucose 115 mg/dl (70-99) H 04/12/24 03:18
Troponins
04/11/24 04/11/24 04/11/24
11:38 16:29 21:02
Troponin I 0.019 7.880 H* D 33.500 H* D
04/12/24 04/12/24
03:18 03:18
Troponin I 42.600 H* D 44.200 H*
Vital Signs and I&O:
Vital Signs
Temp Pulse Resp BP Pulse Ox
98.4 F 67 20 133/67 99
04/12/24 06:53 04/12/24 05:00 04/12/24 06:53 04/12/24 03:00 04/12/24 06:53
Vital Signs
Temp Pulse Resp BP Pulse Ox
98.4 F 67 20 133/67 99
04/12/24 06:53 04/12/24 05:00 04/12/24 06:53 04/12/24 03:00 04/12/24 06:53
Intake & Output
04/10/24 04/11/24 04/12/24 04/13/24
06:59 06:59 06:59 06:59
Intake Total 1184 / 1184
Output Total 3200 / 3200
Balance -2015 /
Physical Exam
Physical Exam
Laying in bed, appears comfortable.
Regular rate and rhythm with normal S1 and S2 no S3 no S4 is a grade 1/6 apical holosystolic murmur no rub
Clear to auscultation bilaterally
Abdomen soft nontender nondistended with normal active bowel sounds
Extremities show trace pretibial edema bilaterally
Neurologic exam is nonfocal
[2024-04-12] MEDS: LASIX 20 MG IV (08:17)
[2024-04-12] MEDS: LOW STRENGTH ASPIRIN 81 MG PO (08:18)
[2024-04-12] MEDS: TOPROL XL 12.5 MG PO (08:18)
[2024-04-12] MEDS: BRILINTA 90 MG PO ×2 (08:18→19:35)
--- NOTE | 2024-04-12 08:31 | PTCARENOTE ---
received patient this am sleeping but easily aroused, patient has no complaints. monitor shows NSR with PVC's, VSS. am medications given. left brachial ecchymotic, old blood on dsg. distal pulse palpable. right radial dsg. D/I, distal pulse
palpable. IV Integrilin @ 16cc/hr without difficulties.
--- NOTE | 2024-04-12 09:23 | PTCARENOTE ---
IV Integrilin D/C'd as ordered.
[2024-04-12] MEDS: CRESTOR 20 MG PO (17:10)
--- NOTE | 2024-04-12 20:35 | PTCARENOTE ---
Patient received at change of shift resting comfortably in the bed. Patient offers no complaints at this time. Denies chest pain, palpitations, difficulty breathing, and/or dizziness. Left brachial puncture site with gauze and tegaderm intact, some
ecchymosis noted, area soft to palpation, old drainage present and unchanged from previous shift's assessment. Right radial puncture site gauze and tegaderm C/D/I. Bilateral radial pulses palpable. Patient on room air, oxygen saturation 99%. Normal
sinus rhythm on quality assurance monitor. NPO status discussed with patient who verbalized understanding nothing to eat or drink after midnight. Call drake within reach. Plan of care discussed with patient. Care ongoing.
[2024-04-13] VITALS (12 sets, daily range): BP systolic 94–121; BP diastolic 35–84; BMI 31.6
[2024-04-13 03:58] LABS: Blood Urea Nitrogen 14 mg/dl (9-20); Calcium 8.8 mg/dl (8.4-10.2); Carbon Dioxide 25 mmol/L (22-30); Chloride 105 mmol/L (98-107); Estimated Creatinine Clearance 99 ml/min; Glucose 104 mg/dl (70-99); Magnesium 2.1 mg/dl (1.6-2.3); Phosphorus 2.6 mg/dl (2.5-4.5); Potassium 3.9 mmol/L (3.5-5.1); Sodium 135 mmol/L (135-145); eGFR > 60.00
[2024-04-13] MEDS: TOPROL XL 12.5 MG PO (08:38)
[2024-04-13] MEDS: LOW STRENGTH ASPIRIN 81 MG PO (08:38)
[2024-04-13] MEDS: BRILINTA 90 MG PO ×2 (08:39→19:46)
--- NOTE | 2024-04-13 11:36 | PTCARENOTE ---
received patient this am in bed, awake,. remains NPO for cardiac cath today. right radial and left brachial sites intact, distal pulses palpable. monitor shows NSR, VSS.
--- NOTE | 2024-04-13 12:40 | CM ---
Pricing on Brilinta is $45 for a 30 day supply through the patient's prescription plan. It is in stock at his [facility]. I notified Lian Kumar. Patient qualifies for the $5 copay card. Patient is agreeable to cost.
--- NOTE | 2024-04-13 12:43 | CM ---
Chart reviewed. Patient is independent of ADLS, lives with his in a split level house, 0 RAMESH, 0 DME. Plan is for the patient to return home. CM to follow
[2024-04-13 14:52] LABS: ACT-LR - POC 300 Seconds (116-155)
[2024-04-13 15:17] LABS: ACT-LR - POC 347 Seconds (116-155)
--- NOTE | 2024-04-13 16:14 | ITS.CL.CATH ---
[facility] Nurse - Catheterization
Cardiac Catheterization
Procedure Report:
LEFT HEART CATHETERIZATION AND CORONARY INTERVENTION
Date of Procedure: April 13, 2024
Referring: Omero White MD
PROCEDURES:
1. Left heart catheterization, selective left coronary angiogram.
2. Ultrasound-guided access.
3. Successful IVUS guided percutaneous coronary artery intervention of 90% hazy proximal ramus intermedius stenosis with 2 overlapping 2.75 x 18 mm and 2.75 x 8 mm Medtronic Chang drug-eluting stents, postdilated using a 2.75 x 15 mm NC balloon at
18 dayo with an excellent angiographic and IVUS based result.
4. Intravascular ultrasound (IVUS)
INDICATION: ST elevation NC status post PCI to LAD, now presenting for staged PCI to ramus intermedius branch.
ACCESS: Right radial artery, 6 Algerian sheath, under ultrasound guidance.
Ultrasound was utilized for vascular access. The radial artery was visualized under ultrasound, and the vessel was patent and pulsatile. An image was stored permanently in the patient's medical record. Under direct ultrasound guidance, a 6 [place]ian
sheath was inserted into the artery using a micropuncture kit through a modified Seldinger technique.
HEMODYNAMICS : (mmHg)
AO (s/d) : 97/65
LV (s/d) : 100/12
LVEDP : 23
CORONARY FINDINGS
DOMINANCE: Right
LEFT MAIN: Left main artery is a large-caliber, trifurcating vessel giving rise to the LAD, ramus intermedius branch of the left circumflex artery. There is minimal luminal irregularities.
LEFT ANTERIOR DESCENDING: The left anterior descending artery is a large-caliber vessel giving rise to 2 major diagonal branches as it courses to the anterior interventricular groove and wraps around the apex. Recently placed stents are widely
patent.
RAMUS INTERMEDIUS: The ramus intermedius branch is a medium to large caliber vessel with a hazy 90% lesion in the proximal portion which was intervened upon with details below.
CIRCUMFLEX: The left circumflex artery is a small size vessel which gives off 1 major obtuse marginal branch with minimal luminal irregularities.
RIGHT CORONARY ARTERY: The right coronary artery was not selectively engaged on the study however on recent study RCA is a large size, dominant vessel with moderate diffuse atherosclerotic plaque in the proximal to mid RCA with mild diffuse
atherosclerotic plaque in the distal RCA, RPDA and right posterolateral branches.
CORONARY INTERVENTION: The left coronary artery was selectively engaged using a EBU 4.0 guide catheter. Additional heparin was given to maintain a therapeutic ACT throughout the case.
SEDATION: 62 minutes of procedural sedation was utilized. An independent internist medical doctor md was present to assist with and help manage the patient's level of consciousness and physiologic status.
RADIATION SUMMARY: Fluoro Time (min): 12.4, Dose (mGy): 672.85 DAP (Gy.cm2) : 39.4
Closure Device: Vascular band over right radial artery, 10 cc of air.
CONCLUSIONS
1. Successful IVUS guided percutaneous coronary artery intervention of 90% hazy proximal ramus intermedius stenosis with 2 overlapping 2.75 x 18 mm and 2.75 x 8 mm Medtronic Chang drug-eluting stents, postdilated using a 2.75 x 15 mm NC balloon at 18
dayo with an excellent angiographic and IVUS based result.
2. Elevated LVEDP at 23 mmHg
RECOMMENDATIONS
1. Uninterrupted dual antiplatelet therapy with daily baby aspirin and Brilinta 90 mg twice daily, high intensity statin and beta-max as tolerated.
2. Optimization of goal-directed medical therapy for ischemic cardiomyopathy.
3. Aggressive management of cardiovascular risk factors.
4. Wean radial band per protocol.
5. Eventual referral for outpatient cardiac rehab.
Bridget Richardson MD, FAC, [facility]
--- NOTE | 2024-04-13 16:52 | PTCARENOTE ---
patient returned from medical laboratory technical officer with right radial R band intact, distal pulse palpable. monitor shows NSR, VSS. patient voices no complaints. patient is aware of R band and protocol. IV NSS @ 146cc/hr without difficulties.
[2024-04-13] MEDS: CRESTOR 20 MG PO (18:26)
[2024-04-13 19:42] LABS: Hepatitis C Antibody Negative (Negative)
[2024-04-14 03:40] VITALS: BP 101/71
[2024-04-14 04:56] LABS: Hematocrit 42.4 % (39.0-52.0); Hemoglobin 14.2 g/dL (13.0-18.0); Mean Corp Hgb Conc. 33.5 g/dL (33.0-37.0); Mean Corpuscular Hgb 31.6 pg (27.0-31.0); Mean Corpuscular Volume 94.4 fL (80.0-94.0); Mean Platelet Volume 11.7 fL (7.4-10.4); Platelet Count 123 10^3/uL (130-400); Red Blood Cell Count 4.49 10^6/uL (4.70-6.10); Red Cell Dist. Width 12.9 % (11.5-14.5); White Blood Cell Count 9.3 10^3/uL (4.8-10.8)
[2024-04-14 05:10] LABS: Blood Urea Nitrogen 15 mg/dl (9-20); Calcium 8.5 mg/dl (8.4-10.2); Carbon Dioxide 22 mmol/L (22-30); Chloride 106 mmol/L (98-107); Estimated Creatinine Clearance 99 ml/min; Glucose 93 mg/dl (70-99); HDL Cholesterol 51 mg/dl; LDL Cholesterol, Calculated 144 mg/dl; Sodium 137 mmol/L (135-145); Total Cholesterol 210 mg/dl (50-199); Triglyceride 77 mg/dl (10-149); Very Low Density Lipoprotein 15 mg/dl (0-30); eGFR > 60.00
[2024-04-14] MEDS: LOW STRENGTH ASPIRIN 81 MG PO (07:42)
[2024-04-14] MEDS: TOPROL XL 12.5 MG PO (07:42)
[2024-04-14] MEDS: BRILINTA 90 MG PO (07:45)
[2024-04-14 08:48] LABS: Glycohemoglobin (HgbA1c) 5.5 % (4.0-5.6)
--- NOTE | 2024-04-14 09:34 | W.PN.CARDCBS ---
Addendum entered and electronically signed by Avelino Yates MD 04/14/24 10:26:
I saw and examined the patient.
The Aerosol Supervisor's note was reviewed and I agree with the note.
Comment:
GEN: No distress, awake, Ox3
HEENT: supple, anicteric, mmm
LUNGS: CTA, no wheezes/rales
CV: Reg, S1/S2, 1/6 syst LSB, no murmur
ABD: soft, BS+, NT/ND
EXT: No edema
NEURO: Gross non-focal
SKIN: No rash
Plan:
Cath results reviewed with patient. Status post PCI of ramus yesterday after LAD PCI April 11. Continue aspirin and Brilinta.
Continue atorvastatin. LDL was 144.
Blood pressure remains on the low side. Will continue Toprol but hold off on JOSE/ARB/Entresto due to low blood pressure. Consider starting as outpatient.
Will need repeat echo in greater than 40 days to reevaluate LVEF. Encourage compliance as he was noncompliant after 2013.
If LVEF remains 30 to 35% we will need to consider for ICD.
Original Note:
Today's Communication / Plan
-
stable for d/c home
Impression / Plan
-
Impression/Plan:
He is critically ill
- Acute NSTEMI
Known coronary artery disease, ischemic EKG and ongoing symptoms despite antianginal therapy with hypotension is preventing IV nitroglycerin
Urgent cath 04/11/24: Aspiration thrombectomy of the proximal LAD, PCI of the proximal LAD and PCI of the mid/distal LAD
04/13/24 staged PCI Ramus artery with 2 EDGAR
Troponin peaked 44.2
rad site stable
Dual antiplatelet therapy with aspirin and ticagrelor for at least 12 months, followed by aspirin indefinitely.
LDL 144, continue atorvastatin 80mg daily, recheck lipids and LFTs in 6-8 weeks
cardiac rehab c/s
f/u 2-4 weeks [facility] office
- acute on chronic HFrEF
Echocardiogram LVEF 35% and hypokinetic wall motion in the LAD distribution
Due to medical noncompliance he has not followed up since his myocardial infarction in 2013
Chest x-ray in the emergency department had findings consistent with interstitial pulmonary edema
diuresed with IV lasix, down 4kg since admission
currently appears euvolemic, will d/c with PRN lasix for swelling/dyspnea
SBP 90-100, for GDMT will only tolerate metoprolol xl 12.5, will titrate as outpt, Consideration for SGLT2 inhibitor
CHF education, diet
- NSVT
tele with one episode o/n but none since
Continue beta-max
We will continue to assess sudden cardiac risk
Certainly if LVEF remains less than 35% 40 days after intervention ICD would be warranted
- Dyslipidemia
goal LDL less than 55, Continue high-dose statin, switched rosuvastatin to atorvastatin 80mg with ticagrelor interaction
- Medical noncompliance
reinforced compliance especially with DAPT
He is a 'less is more' kind of cameron but is willing to comply with new meds
Home today
Procedures: 04/11/24: Aspiration thrombectomy of the proximal LAD, PCI of the proximal LAD and PCI of the mid/distal LAD
Right dominant circulation with an eccentric 50 to 60% lesion in the proximal RCA, a 30% lesion in the distal RCA with luminal irregularities throughout the remainder of the RCA, and 90% lesion in the proximal margin of a large ramus
intermedius, and acute occlusion of a previously placed proximal LAD stent followed by a 70% lesion in the mid LAD immediately after the stented segment status post successful aspiration thrombectomy and IVUS guided PCI (Medtronic [place] 3.0 x 38 EDGAR, postdilated with a 3.0 NC balloon) with reduction in stenosis to 0%, restoring MERCEDES-3 flow, a 70% mid/distal LAD lesion status post successful IVUS guided PCI (Medtronic Chang [place] 2.5 x 18 EDGAR, postdilated with a 2.5
NC balloon throughout and a 2.75 NC balloon in the proximal margin) and a 90% distal LAD lesion spanning the origin of D3 status post successful IVUS guided PCI (Medtronic Chang [place] 2.5 x 26 EDGAR, postdilated with a 2.5 NC balloon
throughout) with reduction in both stenoses to 0%, maintaining MERCEDES-3 flow.
Moderately dilated left ventricle with akinesis of the entire anterior wall and moderate to severely depressed systolic function, LV ejection fraction estimated at 30-35%.
Severely elevated filling pressures (LVEDP = 35 mmHg, PCWP = 35 mmHg at 100.7 kg).
Moderate postcapillary pulmonary hypertension (mean PA = 40 mmHg, PCWP = 35 mmHg, CO = 5.95 L/min, PVR = 0.84 Olmedo units), WHO group 2.
PROCEDURES 04/13/24: Successful IVUS guided percutaneous coronary artery intervention of 90% hazy proximal ramus intermedius stenosis with 2 overlapping 2.75 x 18 mm and 2.75 x 8 mm Medtronic [place] drug-eluting stents, postdilated using a 2.75 x 15 mm
NC balloon at 18 dayo with an excellent angiographic and IVUS based result.
Progress Note - Project Associate
Subjective
Date of Service: April 14, 2024
no cp, sob
Objective
Labs:
04/14/24 03:48
04/14/24 03:48
Labs
Hgb 14.2 g/dL (13.0-18.0) 04/14/24 03:48
Hct 42.4 % (39.0-52.0) 04/14/24 03:48
Plt Count 123 10^3/uL (130-400) L 04/14/24 03:48
APTT Cancelled 04/11/24 18:22
Sodium 137 mmol/L (135-145) 04/14/24 03:48
Potassium 4.0 mmol/L (3.5-5.1) 04/14/24 03:48
BUN 15 mg/dl (9-20) 04/14/24 03:48
Creatinine 0.9 mg/dL (0.7-1.3) 04/14/24 03:48
Glucose 93 mg/dl (70-99) 04/14/24 03:48
Troponins
04/11/24 04/11/24 04/11/24
11:38 16:29 21:02
Troponin I 0.019 7.880 H* D 33.500 H* D
04/12/24 04/12/24 04/12/24
03:18 03:18 09:39
Troponin I 42.600 H* D 44.200 H* 34.900 H*
04/13/24
03:23
Troponin I 27.500 H*
Vital Signs and I&O:
Vital Signs
Temp Pulse Resp BP Pulse Ox
97.6 F 62 18 101/71 96
04/14/24 07:00 04/14/24 06:00 04/14/24 07:00 04/14/24 03:40 04/14/24 07:00
Vital Signs
Temp Pulse Resp BP Pulse Ox
97.6 F 62 18 101/71 96
04/14/24 07:00 04/14/24 06:00 04/14/24 07:00 04/14/24 03:40 04/14/24 07:00
Intake & Output
04/12/24 04/13/24 04/14/24 04/15/24
06:59 06:59 06:59 06:59
Intake Total 1184 / 1184 930 / 930
Output Total 3200 / 3200
Balance -2015 / -20150 / 930
Physical Exam
Physical Exam
NAD< AOX3
S1, S2, RRR
CTAB< non labored, no wheeze
SNTND bsx4
R rad site c/d/i no HT
[2024-04-14 10:16] VITALS: BMI 31.6
[2024-04-14 11:19] VITALS: BP 109/73
--- NOTE | 2024-04-14 11:26 | W.DS.TRANS ---
DC Summary - Education Intern
-
Discharge Instructions:
Sleep Apnea Risk Intermediate
Discharge Diagnosis/Procedures NSTEMI
s/p thrombectomy with angioplasty and stent x3
to Left Anterior Descending artery (04/11)
s/p angioplasty and stent x2 to Ramus artery (
3)
Diet Low Cholesterol,2 Gram Sodium
Activity No strenuous activity
Additional Activity For 2 weeks post cath
Driving Restrictions No driving for 24 hours
Other Services Cardiac Rehab
Specialty Instructions Weigh Daily
Instructions: *[facility] Heart Failure Instructions
Stand-Alone Forms: DC Instructions- Cath/EP Lab
Changes to Home Medications: Yes
Discharge Medications:
DC Medications w/original date entered in [facility]
ibuprofen 200 mg tablet 400 mg PO DAILYPRN PRN mild pain 04/11/24
ticagrelor 90 mg tablet (Brilinta) 90 mg PO BID #180 tabs 04/13/24
aspirin 81 mg chewable tablet 81 mg PO DAILY #1 tab 04/14/24
atorvastatin 80 mg tablet 80 mg PO QPM #90 tabs 04/14/24
furosemide 20 mg tablet (Lasix) 20 mg PO DAILY PRN Weight gain #60 tabs 04/14/24
metoprolol succinate 25 mg tablet,extended release 24 hr 12.5 mg (1/2 x 25 mg) PO DAILY #90 tabs 04/14/24
Home Medication Changes
All new except ibuprofen
Pending Results: No
--- NOTE | 2024-04-14 11:30 | PTCARENOTE ---
Pt received this am oob ad dorothy in the room. Denies any chest pain or sob. Right rad dressing dry and intact with no bruising or hematoma. Pt discharged to home with his . Discharge instructions given and reviewed with good understanding and all
questions answered.
--- NOTE | 2024-04-15 11:56 | W.HF.CON ---
Heart Failure
- LV Function
Left ventricular function study result: LV Ejection fraction </= 35%
Ejection Fraction Percentage: 30-35
- ARNI
Patient already on ARNI: No
Heart Failure ARNI Contraindication: Hypotension
- ACEI/ARB
Patient already on ACEI/ARB: No
Heart Failure ACEI/ARB Contraindication: Hypotension
- Beta Luciana
Patient already on Evidence Based Beta Luciana: Yes
- Mineralocorticord Receptor Antagonist
Patient already on MRA: No
Heart Failure MRA Contraindication: Potentially Non-compliant, Hypotension
- SGLT-2 Inhibitor
Patient already on SGLT-2 Inhibitor: No
Heart Failure SGLT-2 Inhibitor Contraindication: Patient Refusal
- NYHA CHF Classification
NYHA CHF Classification Level: Class III - Symptoms w/ min exertion, interferes w/ nml daily activity
- ACC/AHA Stage
ACC/AHA Stage: Stage C: Symptomatic Heart Failure
== END 2024-04-14 11:25 | disposition home or self-care (01) | DRG 321 ==
LOC: IVU 15:12
PROVIDERS: Emergency Medicine; Internal Medicine Cardiovascular Disease; Internal Medicine Interventional Cardiology; Nurse Practitioner; ADMITTING PHYSICIAN Internal Medicine Cardiovascular Disease; EMERGENCY PHYSICIAN Emergency Medicine; FAMILY PHYSICIAN Family Medicine
PROC: 4A023N8 Measurement of Cardiac Sampling and Pressure, Bilateral, Percutaneous Approach (ICD-10-PCS; 2024-04-11)
PROC: B241ZZ3 Ultrasonography of Multiple Coronary Arteries, Intravascular (ICD-10-PCS; 2024-04-11)
PROC: 027036Z Dilation of Coronary Artery, One Artery with Three Drug-eluting Intraluminal Devices, Percutaneous Approach (ICD-10-PCS; 2024-04-11)
PROC: 02C03ZZ Extirpation of Matter from Coronary Artery, One Artery, Percutaneous Approach (ICD-10-PCS; 2024-04-11)
PROC: B2151ZZ Fluoroscopy of Left Heart using Low Osmolar Contrast (ICD-10-PCS; 2024-04-11)
PROC: B2111ZZ Fluoroscopy of Multiple Coronary Arteries using Low Osmolar Contrast (ICD-10-PCS; 2024-04-11)
PROC: 4A023N7 Measurement of Cardiac Sampling and Pressure, Left Heart, Percutaneous Approach (ICD-10-PCS; 2024-04-13)
PROC: B240ZZ3 Ultrasonography of Single Coronary Artery, Intravascular (ICD-10-PCS; 2024-04-13)
PROC: 027035Z Dilation of Coronary Artery, One Artery with Two Drug-eluting Intraluminal Devices, Percutaneous Approach (ICD-10-PCS; 2024-04-13)
DX: I21.4 Non-ST elevation (NSTEMI) myocardial infarction (principal); I50.23 Acute on chronic systolic (congestive) heart failure; I42.9 Cardiomyopathy, unspecified; I47.20 Ventricular tachycardia, unspecified; T82.855A Stenosis of coronary artery stent, initial encounter; I25.10 Atherosclerotic heart disease of native coronary artery without angina pectoris; E78.5 Hyperlipidemia, unspecified; I27.29 Other secondary pulmonary hypertension; Y84.0 Cardiac catheterization as the cause of abnormal reaction of the patient, or of later complication, without mention of misadventure at the time of the procedure; Y92.9 Unspecified place or not applicable; Y71.2 Prosthetic and other implants, materials and accessory cardiovascular devices associated with adverse incidents; I25.2 Old myocardial infarction; Z91.199 Patient's noncompliance with other medical treatment and regimen due to unspecified reason; Z95.5 Presence of coronary angioplasty implant and graft; Z79.82 Long term (current) use of aspirin
CPT/HCPCS: 71045; 76937; 80048; 80053; 80061; 80069; 83036; 83735; 83880; 84484; 85025; 85027; 85347; 85730; 86803; 92978; 93005; 93306; 93460; 96361; 96365; 99152; 99153; 99291; C1725; C1753; C1769; C1874; C1887; C1894; C9600; C9606; J1327; Q9967

== ENCOUNTER → 2024-05-29 11:38 | Outpatient (REF) | payer OTHER, SELFPAY ==
[2024-05-29 13:15] LABS: Blood Urea Nitrogen 15 mg/dl (9-20); Calcium 9.9 mg/dl (8.4-10.2); Carbon Dioxide 27 mmol/L (22-30); Chloride 102 mmol/L (98-107); Glucose 95 mg/dl (70-99); Potassium 4.4 mmol/L (3.5-5.1); Sodium 138 mmol/L (135-145); eGFR > 60.00
== END ==
LOC: REG 11:38
PROVIDERS: ATTENDING PHYSICIAN Physician Assistant Medical; FAMILY PHYSICIAN Family Medicine
DX: I25.5 Ischemic cardiomyopathy (principal)
CPT/HCPCS: 36415; 80048

== ENCOUNTER → 2024-06-03 13:44 | Outpatient (REF) | payer OTHER, SELFPAY | LOC: RCS 13:44 | PROVIDERS: ATTENDING PHYSICIAN Physician Assistant Medical; FAMILY PHYSICIAN Family Medicine | DX: I25.10 Atherosclerotic heart disease of native coronary artery without angina pectoris (principal); I25.5 Ischemic cardiomyopathy | CPT/HCPCS: 93306 ==

== ENCOUNTER → 2024-11-02 13:02 | Outpatient (REF) | payer OTHER, SELFPAY | LOC: RCS 13:02 | PROVIDERS: ATTENDING PHYSICIAN Internal Medicine Interventional Cardiology; FAMILY PHYSICIAN Family Medicine | DX: I42.9 Cardiomyopathy, unspecified (principal) | CPT/HCPCS: 93306 ==